=== PATIENT | female | born 1960 | race Caucasian/White ===

== ENCOUNTER 2017-12-02 12:39 | Emergency (ER) | payer OTHER ==
--- NOTE | 2017-12-02 12:51 | PDOC ---
History of Present Illness - General Chief Complaint: Urinary Problem Stated Complaint: 7 days of flu/now uti, cough Time Seen by Provider: 12/02/17 12:50 - History of Present Illness Initial Comments: 12/02/17 13:08 Chief complaint: Dysuria History of present illness: Dysuria, urgency, frequency, for 2 days. Subjective fever. Suprapubic pain Review of systems: Recent flulike symptoms for one week, appear to be resolving. However, has developed an intractable cough, dry, no sputum, no shortness of breath or chest pain. There is mild flank pain bilaterally. Past medical history: Infrequent UTIs in the past. Otherwise negative Social/family history reviewed and noncontributory except for smoking cigarettes. Physical exam: Alert and oriented no acute distress cooperative Afebrile, vital signs normal No pallor or icterus. PERRLA, fundi benign, ENT clear Neck supple without bruit mass or nodes Lungs sounds are distant bilaterally but there are no wheezes rales or rhonchi. Symmetric. CV S1 and S2 distant without murmur rub or gallop no JVD or edema no bruits Abdomen nondistended. Bowel sounds normal. Soft without mass or organomegaly. There is mild tenderness over the bladder, without significant bladder distention to palpation or percussion. There is no guarding or rebound Extremities no CCE Skin clear, no rash, adequate turgor and wet mucous membranes Neurological intact Impression: Recent flulike illness which seems to be improving, however, has developed a cough, is a smoker, rule out occult pneumonia. Despite no shortness of breath and good oxygen saturation. Rule out UTI Plan: Chest x-ray, urinalysis, further medical management depending on results. Past History - Past Medical History Allergies/Adverse Reactions: Allergies Allergy/AdvReac Type Severity Reaction Status Date / Time No Known Allergies Allergy Verified 12/21/15 13:01 Home Medications: Ambulatory Orders Ibuprofen 200 mg PO TID PRN 12/02/17 Sulfamethoxazole/Trimethoprim [Bactrim Ds -] 1 tab PO BID #14 tablet 12/02/17 Anemia: No Asthma: No Cancer: No Cardiac Disorders: No CVA: No COPD: No CHF: No Dementia: No Diabetes: No GI Disorders: No Disorders: No HTN: No Hypercholesterolemia: No Liver Disease: No Seizures: No Thyroid Disease: No - Surgical History Abdominal Surgery: No Appendectomy: No Cardiac Surgery: No Cholecystectomy: Yes Lung Surgery: No Neurologic Surgery: No Orthopedic Surgery: No - Suicide/Smoking/Psychosocial Hx Smoking Status: No Smoking History: Never smoked Have you smoked in the past 12 months: No Number of Cigarettes Smoked Daily: 0 'Breaking Loose' booklet given: 09/24/12 Hx Alcohol Use: No Drug/Substance Use Hx: No Substance Use Type: None Hx Substance Use Treatment: No Medical Decision Making - Medical Decision Making 12/02/17 14:09 Chest x-ray is clear. However evidence of severe chronic COPD is present. This was discussed with the patient and strongly recommended that she stop smoking Urinalysis with nitrites, but only 0-2 white cells. Culture pending. Antibiotic until culture results are forthcoming. *DC/Admit/Observation/Transfer Diagnosis at time of Disposition: Viral upper respiratory tract infection with cough UTI (urinary tract infection) Qualifiers: Urinary tract infection type: acute cystitis Hematuria presence: without hematuria Qualified Code(s): N30.00 - Acute cystitis without hematuria - Discharge Dispostion Disposition: HOME Condition at time of disposition: Stable Admit: No - Prescriptions Prescriptions: Sulfamethoxazole/Trimethoprim [Bactrim Ds -] 1 tab PO BID #14 tablet - Referrals - Patient Instructions Printed Discharge Instructions: DI for Viral Upper Respiratory Infection -- Adult, DI for Urinary Tract Infection in Children - Post Discharge Activity Forms/Work/School Notes: Back to Work
[2017-12-02 12:57] VITALS: BP 136/92; PULSE 95; TEMP 97.7; BMI 23.0
[2017-12-02 13:03] LABS: PH,URINE 5.5 (4.5-8); URINE BILIRUBIN Negative (NEGATIVE); URINE GLUCOSE (UA) Negative (NEGATIVE); URINE KETONE Trace (NEGATIVE); URINE LEUK ESTERASE Negative (NEGATIVE); URINE NITRITE Positive (NEGATIVE); URINE UROBILINOGEN 0.2 (0.2-1.0)
[2017-12-02 13:54] LABS: URINE BLOOD 1+ (NEGATIVE); URINE COLOR YELLOW; URINE PROTEIN 1+ (NEGATIVE)
[2017-12-02 13:55] LABS: URINE APPEARANCE HAZY
[2017-12-02 14:03] LABS: EPI CELLS FEW /HPF; URINE BACTERIA FEW /hpf (NEGATIVE); URINE RBC 0-2 /hpf (0-3); URINE WBC 0-2 (0-5)
== END 2017-12-02 14:20 | disposition home or self-care (01) ==
LOC: FER 12:39
DX: N30.00 Acute cystitis without hematuria (principal); J06.9 Acute upper respiratory infection, unspecified; B97.89 Other viral agents as the cause of diseases classified elsewhere; R05 Cough
CPT/HCPCS: 71046-TC-FY; 81003; 81015; 87086; 99282-25

== ENCOUNTER 2018-01-23 17:17 | Emergency (ER) | payer OTHER ==
[2018-01-23 17:38] VITALS: BP 124/75; PULSE 83; TEMP 98; BMI 23.7
--- NOTE | 2018-01-23 18:50 | PDOC ---
History of Present Illness - General Chief Complaint: Eye Problem Stated Complaint: facial redness Time Seen by Provider: 01/23/18 18:49 History Source: Patient Exam Limitations: No Limitations - History of Present Illness Initial Comments: 01/23/18 18:55 57y F no known pmhx presents with R eye redness. Pt states on it was windy and she felt something may have blown in her eyes. she was feeling fine but her daugther noticed some redness/swelling under her R eye yesterday. pt has been putting a tea bag on it and the redness has been improving but pt also noticed a bump in the lower eye lid of R eye. pt denies any eye itching, eye pain, changes in her vision, fever/chills, congestion, new cough, ear pain. Past History - Past Medical History Allergies/Adverse Reactions: Allergies Allergy/AdvReac Type Severity Reaction Status Date / Time No Known Allergies Allergy Verified 01/23/18 17:40 Anemia: No Asthma: No Cancer: No Cardiac Disorders: No CVA: No COPD: No CHF: No Dementia: No Diabetes: No GI Disorders: No Disorders: No HTN: No Hypercholesterolemia: No Liver Disease: No Seizures: No Thyroid Disease: No - Surgical History Abdominal Surgery: No Appendectomy: No Cardiac Surgery: No Cholecystectomy: Yes Lung Surgery: No Neurologic Surgery: No Orthopedic Surgery: No - Suicide/Smoking/Psychosocial Hx Smoking Status: No Smoking History: Current every day smoker Have you smoked in the past 12 months: No Number of Cigarettes Smoked Daily: 20 Information on smoking cessation initiated: Yes 'Breaking Loose' booklet given: 01/23/18 Hx Alcohol Use: No Drug/Substance Use Hx: No Substance Use Type: None Hx Substance Use Treatment: No Review of Systems - Review of Systems Able to Perform ROS?: Yes Comments:: 01/23/18 18:57 Constitutional - no reported Fever, Chills, HEENT: +eye redness/swelling no reported vision changes, sore throat Respiratory: no reported cough, sob, Cardiac: no reported chest pain, palpitations, light headedness, leg swelling Abd/GI: no reported abd pain, nausea, vomiting Musculskelatal - no reported back pain, joint swelling skin - no reported bruising, erythema, rash neurological: no reported headache, numbness, focal weakness, tingling, ataxia, *Physical Exam - Vital Signs Last Vital Signs Temp Pulse Resp BP Pulse Ox 98.0 F 83 18 124/75 99 01/23/18 17:18 01/23/18 17:18 01/23/18 17:18 01/23/18 17:18 01/23/18 17:18 - Physical Exam Comments: 01/23/18 18:57 GENERAL: The patient is awake, alert, and fully oriented, Nontoxic - in no acute distress. HEAD: Normocephalic, atraumatic. EYES: extraocular movements intact, sclera anicteric, conjunctiva clear. Mild periorbital edema under her right eye with erythema, not warm to the touch not tender, no fluctuance, no proptosis, small palable mass (1x1mm) on the lower lid (not on margin) that is nontender, nonfluctuant Medical Decision Making - Medical Decision Making 01/23/18 18:59 suspect possible ALLERGIC reaction improving with warm compress No signs of periorbital cellulitis or orbital cellulitis I discussed the physical exam findings, ancillary test results and final diagnoses with the patient. I answered all of the patient's questions. The patient was satisfied with the care received and felt comfortable with the discharge plan and treatment plan. The patient will call their primary care physician within 24 hours to arrange follow-up and will return to the Emergency Department with any new, persistent or worsening symptoms. *DC/Admit/Observation/Transfer Diagnosis at time of Disposition: Eye redness - Discharge Dispostion Disposition: HOME Condition at time of disposition: Improved Admit: No - Referrals Referrals: Chintan Pal MD [Staff Physician] - - Patient Instructions Printed Discharge Instructions: DI for Eye Allergic Reaction Additional Instructions: Avoid rubbing your eye. See an ophtalmalogist for evaluation of the bump in your eye lid Print Language: POLISH - Post Discharge Activity
== END 2018-01-23 19:00 | disposition home or self-care (01) ==
LOC: FER 17:17
DX: H57.8 Other specified disorders of eye and adnexa (principal)
CPT/HCPCS: 99282-25

== ENCOUNTER 2018-06-15 08:36 | Emergency (ER) | payer OTHER ==
[2018-06-15 08:44] VITALS: TEMP 98.6; BMI 23.9
[2018-06-15 08:58] LABS: URINE APPEARANCE Clear; URINE BILIRUBIN Negative (NEGATIVE); URINE COLOR Yellow; URINE GLUCOSE (UA) Negative (NEGATIVE); URINE KETONE Negative (NEGATIVE); URINE LEUK ESTERASE 3+ (NEGATIVE); URINE NITRITE Negative (NEGATIVE); URINE PROTEIN Negative (NEGATIVE); URINE UROBILINOGEN 0.2 (0.2-1.0)
[2018-06-15 09:11] LABS: EPI CELLS FEW /HPF; URINE BACTERIA FEW /hpf (NEGATIVE); URINE RBC 20-30 /hpf (0-3); URINE WBC 50-80 (0-5)
[2018-06-15] MEDS ORDERED: KETOROLAC TROMETHAMINE 30 MG/1 ML VIAL IM ONE (09:59)
[2018-06-15] MEDS ORDERED: FLUCONAZOLE 150 MG TABLET PO ONE ×2 (09:59→10:04)
[2018-06-15] MEDS ORDERED: PHENAZOPYRIDINE HCL 100 MG TABLET (FP) PO ONE (09:59)
[2018-06-15] MEDS ORDERED: NITROFURANTOIN MACROCRYSTAL 50 MG CAPSULE (FP) PO SCH (10:00)
[2018-06-15] MEDS ORDERED: NITROFURANTOIN MACROCRYSTAL 50 MG CAPSULE (FP) ONE (10:04)
[2018-06-15] MEDS ORDERED: KETOROLAC TROMETHAMINE 30 MG/1 ML VIAL ONE (10:04)
[2018-06-15] MEDS ORDERED: PHENAZOPYRIDINE HCL 100 MG TABLET (FP) ONE (10:05)
--- NOTE | 2018-06-15 10:09 | PDOC ---
History of Present Illness - General Chief Complaint: Urinary Problem Stated Complaint: BURNING ON URINATION/PELVIC PAIN Time Seen by Provider: 06/15/18 08:45 - History of Present Illness Initial Comments: 06/15/18 10:07 57 years old past medical history significant for high cholesterol and uterine prolapse presents to the emergency department 2 week history of suprapubic discomfort and burning with urination. Patient treated herself with Monistat cream with persistent symptoms No fever no chills no back pain no nausea no vomiting symptoms are persistent constant with no exacerbating or alleviating factors. Past History - Past Medical History Allergies/Adverse Reactions: Allergies Allergy/AdvReac Type Severity Reaction Status Date / Time No Known Allergies Allergy Verified 01/23/18 17:40 Anemia: No Asthma: No Cancer: No Cardiac Disorders: No CVA: No COPD: No CHF: No Dementia: No Diabetes: No GI Disorders: No Disorders: No HTN: No Hypercholesterolemia: Yes Liver Disease: No Seizures: No Thyroid Disease: No - Surgical History Abdominal Surgery: No Appendectomy: No Cardiac Surgery: No Cholecystectomy: Yes Lung Surgery: No Neurologic Surgery: No Orthopedic Surgery: No - Suicide/Smoking/Psychosocial Hx Smoking Status: No Smoking History: Current every day smoker Have you smoked in the past 12 months: No Number of Cigarettes Smoked Daily: 20 Information on smoking cessation initiated: Yes 'Breaking Loose' booklet given: 01/23/18 Hx Alcohol Use: No Drug/Substance Use Hx: No Substance Use Type: None Hx Substance Use Treatment: No Review of Systems - Review of Systems Comments:: 06/15/18 10:08 ROS: A complete review of 10 out of 10 review of systems is taken and is negative apart from what is previously mentioned below and in the HPI. *Physical Exam - Vital Signs Last Vital Signs Temp Pulse Resp BP Pulse Ox 98.6 F 107 H 18 159/109 H 100 06/15/18 08:39 06/15/18 08:39 06/15/18 08:39 06/15/18 08:39 06/15/18 08:39 - Physical Exam Comments: 06/15/18 10:08 Vitals: Triage Vital signs reviewed General Appearance: no acute distress, well nourished well developed, Cardiac: Regular rate and rhythym, no murmurs, no rubs, no gallops, Lungs: Clear to auscultation bilateral, good air movement bilaterally, Abdomen: Soft, non distended, normal bowel sounds, non tender to palpation Genitourinary: Diffuse vaginismus. No adnexal tenderness. Discharge noted thick white consistent with candidiasis Rectal: Exam deferred Extremities: Full range of motion to all extremities, no cyanosis, clubbing, or edema Skin: Warm and dry, no rashes or lesions, no rash, no petechiae Psych: normal mood, normal affect ED Treatment Course - ADDITIONAL ORDERS Additional order review: Laboratory Results 06/15/18 08:55 Urine Color Yellow Urine Appearance Clear Urine pH 6.0 Ur Specific [place] <= 1.005 Urine Protein Negative Urine Glucose (UA) Negative Urine Ketones Negative Urine Blood 3+ H Urine Nitrite Negative Urine Bilirubin Negative Urine Urobilinogen 0.2 Ur Leukocyte Esterase 3+ H Urine RBC 20-30 Urine WBC 50-80 Ur Epithelial Cells Few Urine Bacteria Few Medical Decision Making - Medical Decision Making 06/15/18 10:09 57 years old not sexually active with signs and symptoms of urinary tract infection and concomitant Heese infection No evidence of pyelonephritis at this time We'll treat with 7 course of Macrobid IV Toradol for discomfort fluconazole for his infection Patient advised to follow-up with her [employer] this week if vaginal discomfort symptoms continue and she will return to the emergency department for any severe worsening symptoms. Findings, the need for follow-up and strict return instructions discussed with patient. *DC/Admit/Observation/Transfer Diagnosis at time of Disposition: UTI (urinary tract infection) Qualifiers: Urinary tract infection type: site unspecified Hematuria presence: with hematuria Qualified Code(s): N39.0 - Urinary tract infection, site not specified ; R31.9 - Hematuria, unspecified - Discharge Dispostion Disposition: HOME Condition at time of disposition: Stable Decision to Admit order: No - Referrals Referrals: Chintan Pal MD [Staff Physician] - Nella Oquendo MD [Non Staff, Medical] - - Patient Instructions Printed Discharge Instructions: Urinary Tract Infection Additional Instructions: Follow-up with your [employer] doctor this week. Take Macrobid as prescribed. Purchase [id number] Pyridium or Azo and take as directed for the next 3 days. Alternate Tylenol and Motrin as directed on package as needed for pain. Return to the emergency department for any fever back pain nausea vomiting severe worsening symptoms or for any concerns. - Post Discharge Activity
[2018-06-15 10:25] VITALS: BP 142/96; PULSE 84
== END 2018-06-15 10:46 | disposition home or self-care (01) ==
LOC: FER 08:36
PROC: 3E0233Z Introduction of Anti-inflammatory into Muscle, Percutaneous Approach (ICD-10-PCS; principal; 2018-06-15)
DX: N39.0 Urinary tract infection, site not specified (principal); E78.00 Pure hypercholesterolemia, unspecified; F17.210 Nicotine dependence, cigarettes, uncomplicated
CPT/HCPCS: 36415; 81003; 81015; 87086; 87186; 87491; 87591; 99282-25

== ENCOUNTER 2018-06-17 17:13 | Inpatient (IN) | payer OTHER ==
[2018-06-17 17:19] VITALS: BMI 23.9
--- NOTE | 2018-06-17 17:19 | PDOC ---
Rapid Medical Evaluation Time Seen by Provider: 06/17/18 17:14 Medical Evaluation: Allergies Allergy/AdvReac Type Severity Reaction Status Date / Time No Known Allergies Allergy Verified 06/15/18 10:17 I have performed a brief in-person evaluation of this patient. The patient presents with a chief complaint of: patient diagnosed with cystitis and UTI 2 days ago. She tried to have a BM yesterday and felt something strain and now has "internal" pain in her vagina. She was also diagnosed with a yeast infection 2 days ago but wasn't treated. she had an ultrasound today that showed a uterine fibroid Pertinent physical exam findings: walking as if in pain I have ordered the following: labs The patient will proceed to the ED for further evaluation. Discharge Disposition - Diagnosis Vaginal pain - Referrals - Patient Instructions - Post Discharge Activity
[2018-06-17 17:57] LABS: EOS % 5.1 % (0-4.5); HEMATOCRIT 44.1 % (32.4-45.2); HEMOGLOBIN 14.7 GM/dL (10.7-15.3); LYMPH % 26.8 % (8-40); MCHC 33.4 g/dl (32.0-36.0); MEAN CELL VOLUME 89.8 fl (80-96); MEAN PLT VOLUME 8.9 fl (7.5-11.1); MONO % 8.1 % (3.8-10.2); PLATELET COUNT 260 K/MM3 (134-434)
--- NOTE | 2018-06-17 18:34 | PDOC ---
History of Present Illness - General History Source: Patient Exam Limitations: No Limitations - History of Present Illness Initial Comments: 06/17/18 19:15 The patient is a 57 year old female with a significant past medical history of HLD and uterine prolapse who presents to the ED with complaints of superpubic pain for several days. The patient states she had a yeast infection one week ago and treated it at home with Monistat. She notes her pain worsened on Thursday (06/14/18) and she went to [facility] ED on Thursday. Patient was diagnosed with cystitis, UTI, and yeast infection and was discharged home with Macrobid and AZO. Today the patient states she developed a burning sharp pain in her pubic region secondary to having an episode where she passed air while urinating. Patient states her pubic pain is worsened with movement and lying down and alleviated when sitting up. Patient had an US done today at work that showed a fibroid. Patient also saw her GI today and was told to come into the ED requesting a CT. Denies fever or chills. Denies back pain. Denies hematuria. Denies vaginal discharge. Denies any other symptoms. GI: Dr. Alba Surgical hx: Gallbladder removal Social hx: The patient works at [employer] <Millie Salvador - Last Filed: 06/17/18 19:15> <Kristen Church - Last Filed: 06/17/18 23:02> - General Chief Complaint: Pain Stated Complaint: PCP SENT/PELVIC PAIN Time Seen by Provider: 06/17/18 17:14 Past History <Millie Salvador - Last Filed: 06/17/18 19:15> - Past Medical History Anemia: No Asthma: No Cancer: No Cardiac Disorders: No CVA: No COPD: No CHF: No DVT: No Dementia: No Diabetes: No GI Disorders: No Disorders: No HTN: No Hypercholesterolemia: Yes Liver Disease: No Seizures: No Thyroid Disease: No - Surgical History Abdominal Surgery: No Appendectomy: No Cardiac Surgery: No Cholecystectomy: Yes Lung Surgery: No Neurologic Surgery: No Orthopedic Surgery: No - Suicide/Smoking/Psychosocial Hx Smoking Status: No Smoking History: Current every day smoker Have you smoked in the past 12 months: No Number of Cigarettes Smoked Daily: 20 Information on smoking cessation initiated: Yes 'Breaking Loose' booklet given: 06/17/18 Hx Alcohol Use: No Drug/Substance Use Hx: No Substance Use Type: None Hx Substance Use Treatment: No <Kristen Church - Last Filed: 06/17/18 23:02> - Past Medical History Allergies/Adverse Reactions: Allergies Allergy/AdvReac Type Severity Reaction Status Date / Time No Known Allergies Allergy Verified 06/17/18 17:15 Home Medications: Ambulatory Orders Nitrofurantoin Monohyd/M-Cryst [Macrobid -] 100 mg PO BID #14 capsule 06/15/18 Review of Systems - Review of Systems Able to Perform ROS?: Yes Comments:: 06/17/18 19:15 GENERAL/CONSTITUTIONAL: No fever or chills. No weakness. HEAD, EYES, EARS, NOSE AND THROAT: No change in vision. No ear pain or discharge. No sore throat. GASTROINTESTINAL: No nausea, vomiting, diarrhea or constipation. GENITOURINARY: + pelvic pain. No dysuria, frequency, or change in urination. CARDIOVASCULAR: No chest pain or shortness of breath. RESPIRATORY: No cough, wheezing, or hemoptysis. MUSCULOSKELETAL: No joint or muscle swelling or pain. No neck or back pain. SKIN: No rash NEUROLOGIC: No headache, vertigo, loss of consciousness, or change in strength/ sensation. ENDOCRINE: No increased thirst. No abnormal weight change. HEMATOLOGIC/LYMPHATIC: No anemia, easy bleeding, or history of blood clots. ALLERGIC/IMMUNOLOGIC: No hives or skin allergy. All Other Systems: Reviewed and Negative <Millie Salvador - Last Filed: 06/17/18 19:15> *Physical Exam - Vital Signs Last Vital Signs Temp Pulse Resp BP Pulse Ox 98.3 F 118 H 18 209/92 H 100 06/17/18 17:15 06/17/18 17:15 06/17/18 17:15 06/17/18 17:15 06/17/18 17:15 - Physical Exam Comments: 06/17/18 19:15 Constitutional: + Uncomfortable appearing. Awake, alert, oriented. No acute distress. Head: Normocephalic. Atraumatic Eyes: PERRL. EOMI. Conjunctivae are not pale. ENT: Mucous membranes are moist and intact. Posterior pharynx without exudates or erythema. Uvula midline. Neck: Supple. Full ROM. No lymphadenopathy. Cardiovascular: +Tachycardic. Regular rhythm. S1, S2 regular. Distal pulses are 2+ and symmetric. Pulmonary/Chest: No evidence of respiratory distress. Clear to auscultation bilaterally No wheezing, rales or rhonchi. Abdominal: Soft and non-distended. There is no tenderness. No rebound, guarding or rigidity. No organomegaly. No palpable masses. Good bowel sounds. Back: No CVA tenderness. Musculoskeletal: No edema. No cyanosis. No clubbing. Full range of motion in all extremities. Nocalf tenderness. Radial/pedal pulses are intact and 2+ bilaterally Skin: Skin is warm and dry. No petechiae. No purpura. Neurological: Alert and oriented to person, place, and time. Cranial nerves II -XII are grossly intact. Normal speech. Strength is grossly symmetric. No sensory deficits. Psychiatric: Good eye contact. Normal interaction, affect and behavior. <Millie Salvador - Last Filed: 06/17/18 19:15> - Vital Signs Last Vital Signs Temp Pulse Resp BP Pulse Ox 98.3 F 118 H 18 209/92 H 100 06/17/18 17:15 06/17/18 17:15 06/17/18 17:15 06/17/18 17:15 06/17/18 17:15 <Kristen Church - Last Filed: 06/17/18 23:02> Heart Score/ECG Review - ECG Intrepretation Comment:: 06/17/18 21:49 sinus at 72, nl axis, nl interval, no acute st/t wave findings <Kristen Church - Last Filed: 06/17/18 23:02> ED Treatment Course - LABORATORY CBC & Chemistry Diagram: 06/17/18 17:30 06/17/18 17:30 - ADDITIONAL ORDERS Additional order review: Laboratory Results 06/17/18 06/17/18 17:38 17:30 Sodium 141 Potassium 4.0 Chloride 103 Carbon Dioxide 26 Anion Gap 11 BUN 11 Creatinine 0.7 Creat Clearance w eGFR > 60 Random Glucose 101 Calcium 11.1 H Total Bilirubin 0.6 AST 21 ALT 26 Alkaline Phosphatase 112 Total Protein 7.6 Albumin 4.5 Urine Color [place] Urine Appearance Clear Urine pH 6.0 Ur Specific [place] 1.004 Urine Protein Negative Urine Glucose (UA) Negative Urine Ketones Negative Urine Blood 3+ H Urine Nitrite Positive Urine Bilirubin Negative Urine Urobilinogen 4.0 e.u/dl H Ur Leukocyte Esterase 2+ H Urine WBC (Auto) 33 Urine RBC (Auto) 1 Ur Epithelial Cells Rare 06/17/18 17:30 RBC 4.90 MCV 89.8 MCHC 33.4 RDW 14.0 MPV 8.9 Neutrophils % 59.0 Lymphocytes % 26.8 Monocytes % 8.1 Eosinophils % 5.1 H Basophils % 1.0 <Millie Salvador - Last Filed: 06/17/18 19:15> - LABORATORY CBC & Chemistry Diagram: 06/17/18 17:30 06/17/18 17:30 - ADDITIONAL ORDERS Additional order review: 06/17/18 17:30 RBC 4.90 MCV 89.8 MCHC 33.4 RDW 14.0 MPV 8.9 Neutrophils % 59.0 Lymphocytes % 26.8 Monocytes % 8.1 Eosinophils % 5.1 H Basophils % 1.0 <Kristen Church - Last Filed: 06/17/18 23:02> Medical Decision Making - Medical Decision Making 06/17/18 18:58 a/p: 57yo female with pelvic pain that has been worsening -started after having a bm on thursday when she felt something pop and felt air from her vagina -went to the ED and dx with cystitis on Thursday and started on Macrobid -pt with worsening burning in vaginal area and lower abd pain with movement -went to dr. alba who performed rectal exam and then sent her to the ED -pt in obvious pain -pt works at [employer] -will send labs, ua, ucx, will obtain ct abd/pelvis - Dr. Biggs -GI Dr. Alba -hx of bladder mesh that has had complications in the past -will medicate for pain -will monitor and reassess 06/17/18 21:45 Dr. Alba at the bedside pt finished po contrast 06/17/18 23:01 pt without acute findings on ct, however contrast did not make it to lower colon pt also with uti that failed outpt abx case discussed with Rocio from [facility] who accepts pt to service - covering Dr. Pal <Kristen Church - Last Filed: 06/17/18 23:02> *DC/Admit/Observation/Transfer - Attestations Scribe Attestion: 06/17/18 19:15 Documentation prepared by Millie Salvador, acting as medical service technician for Kristen Church DO <Millie Salvador - Last Filed: 06/17/18 19:15> - Discharge Dispostion Decision to Admit order: Yes - Attestations Physician Attestion: 06/17/18 23:02 I, Dr. Kristen Church, DO, attest that this document has been prepared under my direction and personally reviewed by me in its entirety. I further attest, that it accurately reflects all work, treatment, procedures and medical decision -making performed by me. <Kristen Church - Last Filed: 06/17/18 23:02> Diagnosis at time of Disposition: Vaginal pain, Pelvic pain UTI (urinary tract infection) Qualifiers: Urinary tract infection type: site unspecified Hematuria presence: with hematuria Qualified Code(s): N39.0 - Urinary tract infection, site not specified - Discharge Dispostion Condition at time of disposition: Fair
[2018-06-17 18:43] LABS: ALBUMIN 4.5 g/dl (3.4-5.0); ALK PHOS 112 U/L (45-117); ANION GAP 11 MMOL/L (8-16); BILIRUBIN,TOTAL 0.6 mg/dL (0.2-1); BLOOD UREA NITROGEN 11 mg/dL (7-18); CALCIUM 11.1 mg/dL (8.5-10.1); CHLORIDE 103 mmol/L (98-107); CO2 26 mmol/L (21-32); CREATININE 0.7 mg/dL (0.55-1.3); GLUCOSE,RANDOM 101 mg/dL (74-106); SGOT/AST 21 U/L (15-37); SGPT/ALT 26 U/L (13-61); SODIUM 141 mmol/L (136-145); TOT PROT 7.6 g/dl (6.4-8.2)
[2018-06-17 18:54] LABS: URINE APPEARANCE CLEAR; URINE BILIRUBIN NEGATIVE (<2.0 mg/dL); URINE COLOR AMBER; URINE GLUCOSE (UA) NEGATIVE (NEGATIVE); URINE KETONE NEGATIVE (NEGATIVE); URINE NITRITE POSITIVE (NEGATIVE); URINE PROTEIN NEGATIVE (NEGATIVE); URINE UROBILINOGEN 4.0 E.U/dl mg/dL (0.2-1.0)
[2018-06-17] MEDS ORDERED: SODIUM CHLORIDE 0.9% 1000 ML INFUS.BAG IV ONE (18:57)
[2018-06-17] MEDS ORDERED: morphine CARPU-JECT 4 MG/1 ML DISP.SYRIN IVPUSH ONE (18:57)
[2018-06-17 18:58] LABS: URINE LEUK ESTERASE 2+ (NEGATIVE)
[2018-06-17 19:05] LABS: EPI CELLS RARE /HPF (FEW)
[2018-06-17] MEDS ORDERED: CEFTRIAXONE 1 GM in DEXTROSE 5%-WATER - 100 ML IVPB ONE (19:57)
[2018-06-17] MEDS ORDERED: PHENAZOPYRIDINE HCL 100 MG TABLET (FP) PO ONE (19:58)
[2018-06-17] MEDS ORDERED: morphine SULFATE 4 MG/ML VIAL ONE (20:06)
[2018-06-17] MEDS ORDERED: PHENAZOPYRIDINE HCL 100 MG TABLET (FP) ONE (20:06)
[2018-06-17] MEDS ORDERED: CEFTRIAXONE 1 GM/50 ML BAG ONE (20:07)
--- NOTE | 2018-06-17 22:08 | CON.GI ---
Consult Consult Specialty:: Gastroenterology Referred by:: Dr Pal Reason for Consultation:: Pelvic pain - History of Present Illness Chief Complaint: Pelvic pain History of Present Illness: 57F presented to my office with severe pelvic/perineal pain that she developed while straining to defecate on 06/14. She felt something pop and heard a strange hissing noise. She was already being treated for a UTI and vaginal fungal infections and had dysuria and frequency but no pain. Today when I saw her in the office she could barely get out of a chair and walked hunched over due to the severity of the pain. She had been seen in the ER twice this week and had an unremarkable transvaginal ultrasound. I could not identify a recticele or prolapse but suspect that she herniated a viscus or bowel during the defecation. She has complex history of a bladder prolapse repair apparently with a sling which had to be removed when complications developed. 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 She recall that mesh had migrated and had to be removed. Her surgeries were performed by Dr. Biggs. Since then she chronically has fecal incontinence and constipation. s There is no data on [facility]. She last had a colonoscopy with me in 07/03 at which time I removed 6 hyperplastic polyps from the distal half of her colon. Mild left colon diverticulosis was found. - History Source History Provided By: Patient Limitations to Obtaining History: No Limitations - Past Medical History Pulmonary: Yes: COPD Gastrointestinal: Yes: Diverticulosis, Other (colon polyps) Hepatobiliary: Yes: Cholelithiasis (s/p lap choly) Renal/: Yes: Renal Calculi (bladder polyp removed 2010), UTI (recurremt) Reproductive: Yes: Fibroids (D&C 2012) Psych: Yes: Anxiety - Past Surgical History Past Surgical History: Yes: Cholecystectomy (lap choly ) Additional Surgical History: bladder prolpase repair x 2 with removal of sling and mesh. 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 Place of : [facility] History of Recent Travel: No Home Medications - Allergies Allergies/Adverse Reactions: Allergies Allergy/AdvReac Type Severity Reaction Status Date / Time No Known Allergies Allergy Verified 06/17/18 17:15 - Home Medications Home Medications: Ambulatory Orders Nitrofurantoin Monohyd/M-Cryst [Macrobid -] 100 mg PO BID #14 capsule 06/15/18 Family Disease History - Family Disease History Family Disease History: Diabetes: Brother, Heart Disease: Father ( of [place]), CA: Mother (colon cancer), Other: Sister (thyroid disease) Review of Systems - Review of Systems Constitutional: reports: No Symptoms Eyes: reports: No Symptoms HENT: reports: No Symptoms Neck: reports: No Symptoms Cardiovascular: reports: No Symptoms Respiratory: reports: No Symptoms Gastrointestinal: reports: Constipation Genitourinary: reports: Burning, Dysuria, Other (severe perineal/[pelvic pain) Physical Exam-GI Vital Signs: Vital Signs Temperature 98.3 F 06/17/18 17:15 Pulse Rate 118 H 06/17/18 17:15 Respiratory Rate 18 06/17/18 17:15 Blood Pressure 209/92 H 06/17/18 17:15 O2 Sat by Pulse Oximetry (%) 100 06/17/18 17:15 CBC,CMP WBC 8.0 K/mm3 (4.0-10.0) 06/17/18 17:30 RBC 4.90 M/mm3 (3.60-5.2) 06/17/18 17:30 Hgb 14.7 GM/dL (10.7-15.3) 06/17/18 17:30 Hct 44.1 % (32.4-45.2) 06/17/18 17:30 MCV 89.8 fl (80-96) 06/17/18 17:30 MCH 30.0 pg (25.7-33.7) 06/17/18 17:30 MCHC 33.4 g/dl (32.0-36.0) 06/17/18 17:30 RDW 14.0 % (11.6-15.6) 06/17/18 17:30 Plt Count 260 K/MM3 (134-434) 06/17/18 17:30 MPV 8.9 fl (7.5-11.1) 06/17/18 17:30 Absolute Neuts (auto) 4.7 K/mm3 (1.5-8.0) 06/17/18 17:30 Neutrophils % 59.0 % (42.8-82.8) 06/17/18 17:30 Lymphocytes % 26.8 % (8-40) 06/17/18 17:30 Monocytes % 8.1 % (3.8-10.2) 06/17/18 17:30 Eosinophils % 5.1 % (0-4.5) H 06/17/18 17:30 Basophils % 1.0 % (0-2.0) 06/17/18 17:30 Nucleated RBC % 0 % (0-0) 06/17/18 17:30 Sodium 141 mmol/L (136-145) 06/17/18 17:30 Potassium 4.0 mmol/L (3.5-5.1) 06/17/18 17:30 Chloride 103 mmol/L (98-107) 06/17/18 17:30 Carbon Dioxide 26 mmol/L (21-32) 06/17/18 17:30 Anion Gap 11 MMOL/L (8-16) 06/17/18 17:30 BUN 11 mg/dL (7-18) 06/17/18 17:30 Creatinine 0.7 mg/dL (0.55-1.3) 06/17/18 17:30 Creat Clearance w eGFR > 60 (>60) 06/17/18 17:30 Random Glucose 101 mg/dL (74-106) 06/17/18 17:30 Calcium 11.1 mg/dL (8.5-10.1) H 06/17/18 17:30 Total Bilirubin 0.6 mg/dL (0.2-1) 06/17/18 17:30 AST 21 U/L (15-37) 06/17/18 17:30 ALT 26 U/L (13-61) 06/17/18 17:30 Alkaline Phosphatase 112 U/L (45-117) 06/17/18 17:30 Total Protein 7.6 g/dl (6.4-8.2) 06/17/18 17:30 Albumin 4.5 g/dl (3.4-5.0) 06/17/18 17:30 Constitutional: Yes: Anxious, Moderate Distress Eyes: Yes: Conjunctiva Clear HENT: Yes: Normocephalic Neck: Yes: Supple Cardiovascular: Yes: Regular Rate and Rhythm, Tachycardia Respiratory: Yes: CTA Bilaterally Gastrointestinal Inspection: Yes: Scars (healed laparoscopic incisions) ...Auscultate: Yes: Normoactive Bowel Sounds ...Palpate: Yes: Soft, Other (nontender) ...Rectal Exam: Yes: Guaiac Negative, Other (no obvious prolapse appreciated) Edema: No Peripheral Pulses WNL: Yes Neurological: Yes: Alert, Oriented Labs: CBC, BMP 06/17/18 17:30 06/17/18 17:30 Imaging - Results Cat Scan: Other (pending) Problem List - Problems (1) Pelvic pain in female Assessment/Plan: I suspect that Giovana herniated bowel or mesentery while straining to defecate and that this tissue may be compromised enough to be causing her severe pain. She therefore needs to be observed and pain managed until a diagnosis is established. I have discussed her case with Dr Church who will consult Dr Biggs who is more familiar with her previous complications and status and Dr. Braxton as well. Await CT results. Code(s): R10.2 - PELVIC AND PERINEAL PAIN (2) Perineal pain in female Code(s): N94.9 - UNSP COND ASSOC W FEMALE GENITAL ORGANS AND MENSTRUAL CYCLE (3) Constipation Code(s): K59.00 - CONSTIPATION, UNSPECIFIED (4) History of prolapse of bladder Code(s): Z87.448 - PERSONAL HISTORY OF OTHER DISEASES OF URINARY SYSTEM (5) COPD (chronic obstructive pulmonary disease) Code(s): J44.9 - CHRONIC OBSTRUCTIVE PULMONARY DISEASE, UNSPECIFIED (6) Colon polyp, hyperplastic Assessment/Plan: will set up surveillance colonoscopy after discharge Code(s): K63.5 - POLYP OF COLON (7) Diverticula of colon Code(s): K57.30 - DVRTCLOS OF LG INT W/O PERFORATION OR ABSCESS W/O BLEEDING (8) Nephrolithiasis Code(s): N20.0 - CALCULUS OF KIDNEY (9) Family history of colon cancer in mother Code(s): Z80.0 - FAMILY HISTORY OF MALIGNANT NEOPLASM OF DIGESTIVE ORGANS Assessment/Plan Await CT
[2018-06-17] MEDS ORDERED: morphine SULFATE 4 MG/ML VIAL IVPUSH PRN (23:05)
[2018-06-18] MEDS: DEXTROSE 5%-0.45% SALINE 1,000 ML IV SCH ×2 (00:30→09:27)
--- NOTE | 2018-06-18 02:03 | HP ---
CHIEF COMPLAINT: pelvic pain PCP: Demarco, Urology: Kalyan GI: Anjali HISTORY OF PRESENT ILLNESS: This is a 57 year old female with a past medical history of HLD and prolapsed bladder who presented to the ED with severe pelvic/perineal pain that developed while straining to defecate on 06/14. She felt something pop and heard a strange hissing noise. She also reports dysuria x 1 week. She was evaluated at [place] [facility] on 06/15 and diagnosed with a UTI. She was started on macrobid but the pain is no better and is having difficulty walking due to the pain. She also had an outpatient transvaginal ultrasound today which was normal except for a small uterine fibroid. She went to see her GI today who sent her in for CT scan. Upon exam she reports pain with movement and ambulation but feels ok lying still. ER course was notable for: (1) CT abd/pel without definitive acute findings, but cannot r/o SBO (2) started on ceftriaxone for UTI Recent Travel: pt denies PAST MEDICAL HISTORY: hyperlipidemia, bladder prolapse, bladder stones, diverticulosis, colon polyps, uterine fibroids, anxiety PAST SURGICAL HISTORY: prolapsed bladder repair x 2 (sling and subsequent removal due to complications) cholecystectomy D&C 2012 Social History: SmokinPPD X 43Y Alcohol: pt denies Drugs: pt denies Family History: father age 54, MD mother age 90, dementia, had colon CA brother with DM sister with thyroid disease 2 children alive and well Allergies No Known Allergies Allergy (Verified 06/17/18 17:15) HOME MEDICATIONS: 3 Medication Instructions Recorded Nitrofurantoin Monohyd/M-Cryst 100 mg PO BID #14 capsule 06/15/18 [Macrobid -] REVIEW OF SYSTEMS CONSTITUTIONAL: Absent: fever, chills, diaphoresis, generalized weakness, malaise, loss of appetite, weight change HEENT: Absent: rhinorrhea, nasal congestion, throat pain, throat swelling, difficulty swallowing, mouth swelling, ear pain, eye pain, visual changes CARDIOVASCULAR: Absent: chest pain, syncope, palpitations, irregular heart rate, lightheadedness , peripheral edema RESPIRATORY: Absent: cough, shortness of breath, dyspnea with exertion, orthopnea, wheezing, stridor, hemoptysis GASTROINTESTINAL: Absent: abdominal distension, nausea, vomiting, diarrhea, constipation, melena, hematochezia GENITOURINARY: Present: dysuria, pelvic pain Absent: frequency, urgency, hesitancy, hematuria, flank pain, genital pain MUSCULOSKELETAL: Absent: myalgia, arthralgia, joint swelling, back pain, neck pain SKIN: Absent: rash, itching, pallor HEMATOLOGIC/IMMUNOLOGIC: Absent: easy bleeding, easy bruising, lymphadenopathy, frequent infections ENDOCRINE: Absent: unexplained weight gain, unexplained weight loss, heat intolerance, cold intolerance NEUROLOGIC: Absent: headache, focal weakness or paresthesias, dizziness, unsteady gait, seizure, mental status changes, bladder or bowel incontinence PSYCHIATRIC: Absent: anxiety, depression, suicidal or homicidal ideation, hallucinations. PHYSICAL EXAMINATION Vital Signs - 24 hr 3 06/17/18 06/17/18 06/17/18 17:15 23:02 23:09 Temperature 98.3 F 98 F 97.9 F Pulse Rate 118 H 79 Pulse Rate [ 75 Apical] Respiratory 18 18 18 Rate Blood Pressure 209/92 H 134/71 Blood Pressure 124/67 [Right Arm] O2 Sat by Pulse 100 100 100 Oximetry (%) GENERAL: Awake, alert, and fully oriented, in no acute distress. HEAD: Normal with no signs of trauma. EYES: Pupils equal, round and reactive to light, extraocular movements intact, sclera anicteric, conjunctiva clear. No lid lag. EARS, NOSE, THROAT: Ears normal, nares patent, oropharynx clear without exudates. Moist mucous membranes. NECK: Normal range of motion, supple without lymphadenopathy, JVD, or masses. LUNGS: Breath sounds equal, clear to auscultation bilaterally. No wheezes, and no crackles. No accessory muscle use. HEART: Regular rate and rhythm, normal S1 and S2 without murmur, rub or gallop. ABDOMEN: Soft, nontender, not distended, normoactive bowel sounds, no guarding, no rebound, no masses. No hepatomegaly or splenomegaly. MUSCULOSKELETAL: Normal range of motion at all joints. No bony deformities or tenderness. No CVA tenderness. UPPER EXTREMITIES: 2+ pulses, warm, well-perfused. No cyanosis. No clubbing. No peripheral edema. LOWER EXTREMITIES: 2+ pulses, warm, well-perfused. No calf tenderness. No peripheral edema. NEUROLOGICAL: Cranial nerves II-XII intact. Normal speech. Normal gait. PSYCHIATRIC: Cooperative. Good eye contact. Appropriate mood and affect. SKIN: Warm, dry, normal turgor, no rashes or lesions noted, normal capillary refill. Laboratory Results - last 24 hr 3 06/17/18 06/17/18 06/17/18 17:30 17:30 17:38 WBC 8.0 RBC 4.90 Hgb 14.7 Hct 44.1 MCV 89.8 MCH 30.0 MCHC 33.4 RDW 14.0 Plt Count 260 MPV 8.9 Absolute Neuts (auto) 4.7 Neutrophils % 59.0 Lymphocytes % 26.8 Monocytes % 8.1 Eosinophils % 5.1 H Basophils % 1.0 Nucleated RBC % 0 Sodium 141 Potassium 4.0 Chloride 103 Carbon Dioxide 26 Anion Gap 11 BUN 11 Creatinine 0.7 Creat Clearance w eGFR > 60 Random Glucose 101 Calcium 11.1 H Total Bilirubin 0.6 AST 21 ALT 26 Alkaline Phosphatase 112 Total Protein 7.6 Albumin 4.5 Urine Color Aoksua Urine Appearance Clear Urine pH 6.0 Ur Specific Browder 1.004 Urine Protein Negative Urine Glucose (UA) Negative Urine Ketones Negative Urine Blood 3+ H Urine Nitrite Positive Urine Bilirubin Negative Urine Urobilinogen 4.0 e.u/dl H Ur Leukocyte Esterase 2+ H Urine WBC (Auto) 33 Urine RBC (Auto) 1 Ur Epithelial Cells Rare ECG normal sinus rhythm vent rate 72, QTC [address]/T changes Radiology Reports Transvaginal ultrasound IMPRESSION: Small uterine fibroid, otherwise normal pelvic sonogram. Reported By : Junior Beltran MD 06/17/[address] abd/pelvis Impression: Partially included 5 mm pulmonary nodule in the left lower lobe for which correlation with CT scan of the chest is indicated. Status post cholecystectomy with mild dilatation of the central intrahepatic bile ducts and without gross dilatation of the common bile duct. Dilated mid and distal small bowel loops that may be on the basis of ileus. The possibility of early distal small bowel obstruction is unlikely however it could not be excluded. Normal-appearing terminal ileum. Air distended rectum and rectosigmoid junction without wall thickening. There is a trace of free fluid in the right hemipelvis which is nonspecific. 1.9 x 1.1 cm bladder stone layering on the left side it has increased in size since the prior exam. Case discussed with Dr. Campos, caring attending physician. Reported By: Carole Jenkins MD 06/17/18 2300 ASSESSMENT/PLAN: 57yF with PMH HLD, bladder prolapse s/p surgical repair x 2, bladder stones, diverticulosis, colon polyps, uterine fibroids, anxiety presented to the ED with pelvic pain x 4 days, dysuria x 1 week. UTI with pelvic pain - failed outpt therapy - c/s from 06/15 sensitive to cephalosporins. Cont ceftriaxone daily - urology consult - pain out of proportion to expected UTI pain - Contrast did not travel throughout entire colon, will repeat CT scan in am - SPOT WELDER and urology consults - GI consult appreciated - morphine for pain - NPO, D51/2 NS pulmonary nodule - seen on CT - recommend outpatient workup, PCP to follow DVT PPX - heparin SC FEN - D51/2NS @ 125cc/hr - BMP in AM - NPO for now Dispo: Pt currently requires further inpatient management of her emergent condition. Visit type - Emergency Visit Emergency Visit: Yes ED Registration Date: 06/17/18 Care time: The patient presented to the Emergency Department on the above date and was hospitalized for further evaluation of their emergent condition. - New Patient This patient is new to me today: Yes Date on this admission: 06/18/18 - Critical Care Critical Care patient: No Hospitalist Screening - Colonoscopy Questionnaire Colonoscopy Questionnaire: Colonoscopy Questionnaire - Patient: 50 - 75 years old and never had a screening colonoscopy: No (last colonoscopy ) History of colon or rectal polyps, or CA: No History of IBD, Crohn's disease or UC: No History of abdominal radiation therapy as a child: No - Relative: 1 with colon or rectal CA, or polyps at age 60 or younger: No Colon or rectal CA diagnosed at age 45 or younger: No Multiple relatives with colon or rectal CA: No - Outcome: Screening Result: Negative Screen
[2018-06-18] MEDS: HEPARIN NA (PORCINE) 5,000 UNITS/ML 1ML VIAL SQ SCH ×2 (06:00→15:09)
[2018-06-18 07:57] LABS: BASO % 0.8 % (0-2.0); EOS % 4.1 % (0-4.5); HEMATOCRIT 44.9 % (32.4-45.2); HEMOGLOBIN 14.8 GM/dL (10.7-15.3); LYMPH % 16.9 % (8-40); MCH 29.7 pg (25.7-33.7); MCHC 32.9 g/dl (32.0-36.0); MEAN CELL VOLUME 90.2 fl (80-96); MEAN PLT VOLUME 8.4 fl (7.5-11.1); MONO % 6.3 % (3.8-10.2); NEUT % 71.9 % (42.8-82.8); PLATELET COUNT 236 K/MM3 (134-434); RBC 4.98 M/mm3 (3.60-5.2); RDW 14.3 % (11.6-15.6); WHITE BLOOD COUNT 9.2 K/mm3 (4.0-10.0)
[2018-06-18 09:09] LABS: ALBUMIN 3.9 g/dl (3.4-5.0); ALK PHOS 111 U/L (45-117); ANION GAP 8 MMOL/L (8-16); BILIRUBIN,TOTAL 0.6 mg/dL (0.2-1); BLOOD UREA NITROGEN 8 mg/dL (7-18); CALCIUM 9.8 mg/dL (8.5-10.1); CHLORIDE 106 mmol/L (98-107); CO2 28 mmol/L (21-32); CREATININE 0.7 mg/dL (0.55-1.3); GLUCOSE,RANDOM 86 mg/dL (74-106); MAGNESIUM 2.4 mg/dL (1.8-2.4); PHOSPHOROUS 3.6 mg/dL (2.5-4.9); POTASSIUM 4.4 mmol/L (3.5-5.1); SGOT/AST 25 U/L (15-37); SGPT/ALT 31 U/L (13-61); SODIUM 141 mmol/L (136-145); TOT PROT 7.1 g/dl (6.4-8.2)
[2018-06-18 09:15] LABS: AMYLASE 36 U/L (25-115); LDH 172 U/L (84-246)
--- NOTE | 2018-06-18 11:18 | EKG ---
Test Reason : Blood Pressure : / mmHG Vent. Rate : 072 BPM Atrial Rate : 072 BPM P-R Int : 152 ms QRS Dur : 076 ms QT Int : 378 ms P-R-T Axes : 069 081 060 degrees QTc Int : 413 ms NORMAL SINUS RHYTHM NORMAL ECG NO PREVIOUS ECGS AVAILABLE Confirmed by SARAH REGAN, CRISTA ([id number]) on 06/18/2018 11:18:32 AM Referred By: Confirmed By:CRISTA SMITH MD
--- NOTE | 2018-06-18 14:36 | PN ---
Progress Note, Physician Chief Complaint: Ms Garcia is complaining of suprapubic pain with urination and bowel movements. No cp, sob, n/v. - Current Medication List Current Medications: Active Medications Heparin Sodium (Porcine) (Heparin -) 5,000 unit SQ TID [facility] Last Admin: 06/18/18 06:00 Dose: 5,000 unit Dextrose/Sodium Chloride (D5-1/2ns -) 1,000 mls @ 125 mls/hr IV ASDIR BEVERLY Last Admin: 06/18/18 09:27 Dose: 125 mls/hr Ceftriaxone Sodium 1 gm/ (Dextrose) 50 mls @ 100 mls/hr IVPB HS BEVERLY; Protocol Morphine Sulfate (Morphine Sulfate) 4 mg IVPUSH Q4H PRN PRN Reason: PAIN LEVEL 6-10 Last Admin: 06/18/18 03:58 Dose: 4 mg - Objective Vital Signs: Vital Signs Temperature 36.4 C 06/18/18 09:30 Pulse Rate 75 06/18/18 09:30 Respiratory Rate 20 06/18/18 09:30 Blood Pressure 126/73 06/18/18 09:30 O2 Sat by Pulse Oximetry (%) 100 06/17/18 23:09 Constitutional: Yes: Well Nourished, No Distress, Calm Cardiovascular: Yes: Regular Rate and Rhythm. No: Gallop, Murmur, Rub Respiratory: Yes: Regular, CTA Bilaterally. No: Rales, Rhonchi, Wheezes Gastrointestinal: Yes: Normal Bowel Sounds, Soft. No: Distention, Tenderness Extremities: Yes: WNL Edema: No Labs: CBC, BMP 06/18/18 06:20 06/18/18 06:20 Problem List - Problems (1) Pelvic pain in female Assessment/Plan: -possibly secondary to UTI -also with bladder calculus, ? if it is contributing -considering CT scan do not suspect GI in nature -urology and gynecology consulted and awaiting recommendations Code(s): R10.2 - PELVIC AND PERINEAL PAIN (2) UTI (urinary tract infection) Assessment/Plan: -recent urine cultures growing e coli -failed macrobid -currently on rocephin, continue -plan to discharge on oral cephalosporin when ready for discharge Code(s): N39.0 - URINARY TRACT INFECTION, SITE NOT SPECIFIED Qualifiers: Urinary tract infection type: site unspecified Hematuria presence: without hematuria Qualified Code(s): N39.0 - Urinary tract infection, site not specified (3) Bladder calculus Assessment/Plan: -urology consult Code(s): N21.0 - CALCULUS IN BLADDER (4) Hyperlipidemia Assessment/Plan: -can restart statin on discharge Code(s): E78.5 - HYPERLIPIDEMIA, UNSPECIFIED
--- NOTE | 2018-06-18 15:18 | PN ---
GI Progress Note Subjective: GI NOte: Followup CT revealed no compromised or perforated bowel. Her pain is much improved and Jake tolerated solids for lunch. She is moving her bowels since the CT contrast and feels that this may have brought her the relief. I have informed her that she has chemistries suggesting hyperparathyroidism and hypothyroidism and that she needs to see an collaborating supervising physician. - Objective Vital Signs: Vital Signs Temperature 98.7 F 06/18/18 14:50 Pulse Rate 85 06/18/18 14:50 Respiratory Rate 18 06/18/18 14:50 Blood Pressure 139/71 06/18/18 14:50 O2 Sat by Pulse Oximetry (%) 100 06/17/18 23:09 CBC,CMP WBC 9.2 K/mm3 (4.0-10.0) 06/18/18 06:20 RBC 4.98 M/mm3 (3.60-5.2) 06/18/18 06:20 Hgb 14.8 GM/dL (10.7-15.3) 06/18/18 06:20 Hct 44.9 % (32.4-45.2) 06/18/18 06:20 MCV 90.2 fl (80-96) 06/18/18 06:20 MCH 29.7 pg (25.7-33.7) 06/18/18 06:20 MCHC 32.9 g/dl (32.0-36.0) 06/18/18 06:20 RDW 14.3 % (11.6-15.6) 06/18/18 06:20 Plt Count 236 K/MM3 (134-434) 06/18/18 06:20 MPV 8.4 fl (7.5-11.1) 06/18/18 06:20 Absolute Neuts (auto) 6.6 K/mm3 (1.5-8.0) 06/18/18 06:20 Neutrophils % 71.9 % (42.8-82.8) D 06/18/18 06:20 Lymphocytes % 16.9 % (8-40) D 06/18/18 06:20 Monocytes % 6.3 % (3.8-10.2) 06/18/18 06:20 Eosinophils % 4.1 % (0-4.5) 06/18/18 06:20 Basophils % 0.8 % (0-2.0) 06/18/18 06:20 Nucleated RBC % 0 % (0-0) 06/18/18 06:20 Sodium 141 mmol/L (136-145) 06/18/18 06:20 Potassium 4.4 mmol/L (3.5-5.1) 06/18/18 06:20 Chloride 106 mmol/L (98-107) 06/18/18 06:20 Carbon Dioxide 28 mmol/L (21-32) 06/18/18 06:20 Anion Gap 8 MMOL/L (8-16) 06/18/18 06:20 BUN 8 mg/dL (7-18) 06/18/18 06:20 Creatinine 0.7 mg/dL (0.55-1.3) 06/18/18 06:20 Creat Clearance w eGFR > 60 (>60) 06/18/18 06:20 Random Glucose 86 mg/dL (74-106) 06/18/18 06:20 Calcium 9.8 mg/dL (8.5-10.1) 06/18/18 06:20 Phosphorus 3.6 mg/dL (2.5-4.9) 06/18/18 06:20 Magnesium 2.4 mg/dL (1.8-2.4) 06/18/18 06:20 Total Bilirubin 0.6 mg/dL (0.2-1) 06/18/18 06:20 AST 25 U/L (15-37) 06/18/18 06:20 ALT 31 U/L (13-61) 06/18/18 06:20 Alkaline Phosphatase 111 U/L (45-117) 06/18/18 06:20 LD Total 172 U/L (84-246) 06/18/18 06:20 Creatine Kinase 88 IU/L (26-192) 06/18/18 06:20 C-Reactive Protein < 0.3 MG/DL (0.00-0.3) 06/18/18 06:20 Total Protein 7.1 g/dl (6.4-8.2) 06/18/18 06:20 Albumin 3.9 g/dl (3.4-5.0) 06/18/18 06:20 Total Amylase 36 U/L (25-115) 06/18/18 06:20 TSH 12.50 uIU/ml (0.358-3.74) H 06/18/18 06:20 Constitutional: No Distress ...Auscultate: Yes: Normoactive Bowel Sounds ...Palpate: Yes: Soft, Other (nontender) Labs: CBC, BMP 06/18/18 06:20 06/18/18 06:20 Problem List - Problems (1) Pelvic pain in female Assessment/Plan: I now suspect that Giovana passed a hard jagged fecalith across her rectosigmoid angulation that created a mucosal tear but fortunately not a perforation. Given this I have advised her to take Miralax daily and will eprescribe it to her pharmacy. I advised followup to our office after her endocrine evaluation. I have discussed the case with Dr Montero and have no GI objections to discharge. Code(s): R10.2 - PELVIC AND PERINEAL PAIN (2) Perineal pain in female Code(s): N94.9 - UNSP COND ASSOC W FEMALE GENITAL ORGANS AND MENSTRUAL CYCLE (3) Constipation Code(s): K59.00 - CONSTIPATION, UNSPECIFIED (4) History of prolapse of bladder Code(s): Z87.448 - PERSONAL HISTORY OF OTHER DISEASES OF URINARY SYSTEM (5) COPD (chronic obstructive pulmonary disease) Code(s): J44.9 - CHRONIC OBSTRUCTIVE PULMONARY DISEASE, UNSPECIFIED (6) Colon polyp, hyperplastic Code(s): K63.5 - POLYP OF COLON (7) Diverticula of colon Code(s): K57.30 - DVRTCLOS OF LG INT W/O PERFORATION OR ABSCESS W/O BLEEDING (8) Nephrolithiasis Code(s): N20.0 - CALCULUS OF KIDNEY (9) Family history of colon cancer in mother Code(s): Z80.0 - FAMILY HISTORY OF MALIGNANT NEOPLASM OF DIGESTIVE ORGANS
--- NOTE | 2018-06-18 15:19 | DS ---
Physical Examination Vital Signs: Vital Signs Temperature 37.1 C 06/18/18 14:50 Pulse Rate 85 06/18/18 14:50 Respiratory Rate 18 06/18/18 14:50 Blood Pressure 139/71 06/18/18 14:50 O2 Sat by Pulse Oximetry (%) 100 06/17/18 23:09 Labs: CBC, BMP 06/18/18 06:20 06/18/18 06:20 Discharge Summary Reason For Visit: UTI Current Active Problems Bladder calculus (Acute) COPD (chronic obstructive pulmonary disease) (Acute) Colon polyp, hyperplastic (Acute) Constipation (Acute) Diverticula of colon (Acute) Family history of colon cancer in mother (Acute) History of prolapse of bladder (Acute) Hyperlipidemia (Acute) Nephrolithiasis (Acute) Pelvic pain (Acute) Pelvic pain in female (Acute) Perineal pain in female (Acute) UTI (urinary tract infection) (Acute) Vaginal pain (Acute) Hospital Course: Ms Garcia is a pleasant 57 year old female who presented with abdominal pain. She was admitted and underwent CT scan. After having bowel movements her pain improved. Suspect patient had significant constipation. Case d/w Dr Alba and he feels she is also safe for discharge. She will be discharged on keflex for 6 more days. She will need outpatient referral to endocrinology, further work up for hypothyroid and hyperparathyroid. Will defer to Dr Pal for this. Condition: Good - Instructions Diet, Activity, Other Instructions: low fat diet. resume previous activity. Referrals: Wendy Alba MD [Staff Physician] - Chintan Pal MD [Staff Physician] - 1 Week Steffen Biggs MD [Staff Physician] - Disposition: HOME - Home Medications Comprehensive Discharge Medication List: Ambulatory Orders Cephalexin Monohydrate [Keflex -] 500 mg PO BID #12 capsule 06/18/18 Polyethylene Glycol 3350 [Miralax (For Daily Use) -] 17 gm PO DAILY #1 bottle
--- NOTE | 2018-06-18 17:27 | CON.GU ---
Consult Consult Specialty:: Referred by:: medicine Reason for Consultation:: pelvic pain - History of Present Illness Chief Complaint: pelvic pain History of Present Illness: 57 year old female with a few days of severe pelvic pain and hypertension. She also reported being constipated for a while. She has a bladder stone on CT> after the gastrograffin she had several bowel movements and her pain has resolved. - History Source History Provided By: Patient Limitations to Obtaining History: No Limitations - Past Medical History Pulmonary: Yes: COPD Gastrointestinal: Yes: Diverticulosis, Other (colon polyps) Hepatobiliary: Yes: Cholelithiasis (s/p lap choly) Renal/: Yes: Renal Calculi (bladder polyp removed 2010), UTI (recurremt), Other (inconntinence) Psych: Yes: Anxiety - Past Surgical History Past Surgical History: Yes: Cholecystectomy (lap choly ) Additional Surgical History: bladder prolpase repair x 2 with removal of sling and mesh. 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 History of Recent Travel: No Home Medications - Allergies Allergies/Adverse Reactions: Allergies Allergy/AdvReac Type Severity Reaction Status Date / Time No Known Allergies Allergy Verified 06/17/18 17:15 - Home Medications Home Medications: Ambulatory Orders Cephalexin Monohydrate [Keflex -] 500 mg PO BID #12 capsule 06/18/18 Polyethylene Glycol 3350 [Miralax (For Bowel Prep) -] 17 gm PO DAILY #1 btl Polyethylene Glycol 3350 [Miralax (For Daily Use) -] 17 gm PO DAILY #1 bottle Family Disease History - Family Disease History Family Disease History: Diabetes: Brother, Heart Disease: Father ( of [place]), CA: Mother (colon cancer), Other: Sister (thyroid disease) Review of Systems - Review of Systems Constitutional: reports: No Symptoms Genitourinary: reports: Flank Pain, Pain, Urgency Physical Exam- Vital Signs: Vital Signs Temperature 98.7 F 06/18/18 14:50 Pulse Rate 85 06/18/18 14:50 Respiratory Rate 18 /28/18 14:50 Blood Pressure 139/71 06/18/18 14:50 O2 Sat by Pulse Oximetry (%) 100 06/17/18 23:09 Renal/: No: CVA Tenderness - Left, CVA Tenderness - Right, Huang Present, Hematuria, Incontinence Kidneys: No: Flank Pain Left, FLank Pain Right Pelvis: Yes: Bladder Non Palpable Labs: CBC, BMP 06/18/18 06:20 06/18/18 06:20 Problem List - Problems (1) Bladder calculus Assessment/Plan: follow up as outpatient for management Code(s): N21.0 - CALCULUS IN BLADDER
[2018-06-18 17:31] VITALS: BP 142/65; PULSE 76; TEMP 98
[2018-06-18] MEDS ORDERED: CEFTRIAXONE 1 GM in DEXTROSE 5%-WATER - 50 ML IVPB SCH (22:00)
== END 2018-06-18 18:50 | disposition home or self-care (01) | DRG 690 ==
LOC: JER 17:13 → JERBED 23:02 → J8W 23:48
PROVIDERS: ADMIT Internal Medicine; ATTEND Internal Medicine
DX: N39.0 Urinary tract infection, site not specified (principal); B96.29 Other Escherichia coli [E. coli] as the cause of diseases classified elsewhere; N21.0 Calculus in bladder; D25.9 Leiomyoma of uterus, unspecified; E78.5 Hyperlipidemia, unspecified; R91.1 Solitary pulmonary nodule; F17.210 Nicotine dependence, cigarettes, uncomplicated; J44.9 Chronic obstructive pulmonary disease, unspecified; K57.30 Diverticulosis of large intestine without perforation or abscess without bleeding; Z80.0 Family history of malignant neoplasm of digestive organs; K59.00 Constipation, unspecified
CPT/HCPCS: 36415; 74176-TC; 74177-TC; 80053; 81003; 81015; 82150; 82310; 82550; 83615; 83735; 83970; 84100; 84155; 84165; 84436; 84443; 85025; 86140; 87086; 93005; 93010; 99284-25; J1644; J7030

== ENCOUNTER 2019-03-09 06:50 | Day surgery (SDC) | payer OTHER ==
[2019-03-08 12:48] VITALS: BMI 22.4
[2019-03-09 08:53] VITALS: TEMP 97.8
[2019-03-09 13:14] VITALS: BP 130/66; PULSE 65
--- NOTE | 2019-03-10 11:40 | PATH ---
Surgical Pathology Report Patient Name: LOLY PATEL [facility]. Rec. #: [id number] /Age/Gender: 1960 (Age: 58) / F Account: [id number] Location: U-ENDOSCOPY Taken: 03/09/2019 Received: 03/09/2019 Reported: 03/10/2019 Physicians: Wendy Alba M.D. Specimen(s) Received A: SECOND PORTION DUODENUM AND BULB B: ANTRUM C: GASTRIC FUNDUS POLYP D: GE JUNCTION E: RECTAL POLYP F: DESCENDING COLON POLYP G: TRANSVERSE COLON POLYP H: CECAL POLYP Clinical History Abdominal pain, rule out ulcer, history of colon polyps, family history of colon cancer, colon cancer screening Postoperative diagnosis: GERD, gastritis, gastric polyp, colon polyps Final Diagnosis A. DUODENUM, SECOND PORTION AND DUODENAL BULB, BIOPSY: DUODENAL MUCOSA WITH MILD ACUTE AND CHRONIC DUODENITIS. B. STOMACH, ANTRUM, BIOPSY: GASTRIC ANTRAL MUCOSA WITH MILD CHRONIC GASTRITIS. IMMUNOHISTOCHEMICAL STAIN FOR H. PYLORI IS NEGATIVE. C. GASTRIC FUNDUS, POLYP, BIOPSY: POLYPOID GASTRIC MUCOSA WITH MODERATE CHRONIC GASTRITIS. IMMUNOHISTOCHEMICAL STAIN FOR H. PYLORI IS NEGATIVE. D. GE JUNCTION, BIOPSY: SQUAMOCOLUMNAR MUCOSA WITH MILD CHRONIC INFLAMMATION AND CHANGES OF MODERATE REFLUX ESOPHAGITIS. NO INTESTINAL METAPLASIA OR DYSPLASIA IDENTIFIED. E. RECTAL POLYP, BIOPSY: HYPERPLASTIC POLYP. F. DESCENDING COLON, POLYP, BIOPSY: POLYPOID COLONIC MUCOSA WITH MILD SUPERFICIAL HYPERPLASTIC FEATURES. G. TRANSVERSE COLON, POLYP, BIOPSY: POLYPOID COLONIC MUCOSA WITH PROMINENT LYMPHOID AGGREGATE. H. CECAL POLYP, BIOPSY: TUBULAR ADENOMA. Electronically Signed Pretty Jackman M.D. Gross Description A. Received in formalin, labeled "biopsy second portion duodenum and duodenal bulb" are 4 porter, irregular portions of soft tissue ranging from 0.3-0.4 cm. in greatest dimension. The specimens are submitted in toto in one cassette. B. Received in formalin, labeled "biopsy antrum" are 3 porter, irregular portions of soft tissue ranging from 0.3-0.4 cm. in greatest dimension. The specimens are submitted in toto in one cassette. C. Received in formalin, labeled "biopsy gastric fundus polyp" are 2 porter, irregular portions of soft tissue measuring 0.2 and 0.3 cm. in greatest dimension. The specimens are submitted in toto in one cassette. D. Received in formalin, labeled "biopsy GE junction" are 2 porter, irregular portions of soft tissue averaging 0.4 cm. in greatest dimension. The specimens are submitted in toto in one cassette. E. Received in formalin, labeled "biopsy rectal polyp" are 4 porter, irregular portions of soft tissue ranging from 0.1-0.2 cm. in greatest dimension. The specimens are submitted in toto in one cassette. F. Received in formalin, labeled "biopsy descending colon polyp" are 2 porter, irregular portions of soft tissue measuring 0.2 and 0.3 cm. in greatest dimension. The specimens are submitted in toto in one cassette. G. Received in formalin, labeled "biopsy transverse colon polyp" are 2 porter, irregular portions of soft tissue averaging 0.3 cm. in greatest dimension. The specimens are submitted in toto in one cassette. H. Received in formalin, labeled "biopsy cecal polyp" is a porter, irregular portion of soft tissue measuring 0.4 cm. in greatest dimension. The specimen is submitted in toto in one cassette. 03/09/2019 [facility]03/09/2019
== END 2019-03-09 10:05 | disposition home or self-care (01) ==
LOC: JASU-ENDO 06:50
PROVIDERS: ATTEND Internal Medicine Gastroenterology
PROC: 0DBL8ZX Excision of Transverse Colon, Via Natural or Artificial Opening Endoscopic, Diagnostic (ICD-10-PCS; 2019-03-09)
PROC: 0DBN8ZX Excision of Sigmoid Colon, Via Natural or Artificial Opening Endoscopic, Diagnostic (ICD-10-PCS; 2019-03-09)
PROC: 0DBP8ZX Excision of Rectum, Via Natural or Artificial Opening Endoscopic, Diagnostic (ICD-10-PCS; 2019-03-09)
PROC: 0DB48ZX Excision of Esophagogastric Junction, Via Natural or Artificial Opening Endoscopic, Diagnostic (ICD-10-PCS; 2019-03-09)
PROC: 0DB68ZX Excision of Stomach, Via Natural or Artificial Opening Endoscopic, Diagnostic (ICD-10-PCS; 2019-03-09)
PROC: 0DBH8ZX Excision of Cecum, Via Natural or Artificial Opening Endoscopic, Diagnostic (ICD-10-PCS; principal; 2019-03-09 08:00)
DX: Z12.11 Encounter for screening for malignant neoplasm of colon (principal); K62.1 Rectal polyp; D12.0 Benign neoplasm of cecum; D12.5 Benign neoplasm of sigmoid colon; D12.3 Benign neoplasm of transverse colon; K64.8 Other hemorrhoids; K57.30 Diverticulosis of large intestine without perforation or abscess without bleeding; K31.7 Polyp of stomach and duodenum; K21.0 Gastro-esophageal reflux disease with esophagitis; K44.9 Diaphragmatic hernia without obstruction or gangrene; K29.70 Gastritis, unspecified, without bleeding; J44.9 Chronic obstructive pulmonary disease, unspecified; Z72.0 Tobacco use; Z80.0 Family history of malignant neoplasm of digestive organs; Z86.010 Personal history of colon polyps
CPT/HCPCS: 88305-TC; 88342-TC

== ENCOUNTER 2022-08-02 09:32 | Emergency (ER) | payer OTHER ==
[2022-08-02] MEDS ORDERED: ACETAMINOPHEN 500 MG TABLET (FP) PO ONE (12:33)
[2022-08-02 12:39] VITALS: BP 197/78; PULSE 98; RESP 18; TEMP 98.2; BMI 21.9
[2022-08-02] MEDS ORDERED: ACETAMINOPHEN 500 MG TABLET (FP) ONE (14:22)
== END 2022-08-02 14:34 | disposition home or self-care (01) ==
LOC: JER 09:32
DX: M79.604 Pain in right leg (principal)
CPT/HCPCS: 93971-TC; 99284-25

== ENCOUNTER 2022-08-09 09:06 | Emergency (ER) | payer OTHER ==
[2022-08-09 09:30] VITALS: RESP 18; TEMP 98.1; BMI 21.9
[2022-08-09 10:27] LABS: HEMATOCRIT 34.7 % (32.4-45.2); HEMOGLOBIN 11.9 G/dL (10.7-15.3); MCH 32.2 pg (25.7-33.7); MCHC 34.1 g/dl (32.0-36.0); MEAN CELL VOLUME 94.2 fl (80-96); PLATELET COUNT 117.1 10^3/uL (134-434); RBC 3.68 10^6/uL (3.60-5.2); RDW 18.7 % (11.6-15.6)
[2022-08-09 10:28] LABS: INR 1.01 (0.83-1.09); PROTHROMBIN TIME (PATIENT) 11.6 SEC (9.7-13.0)
[2022-08-09 10:35] LABS: PLATELET ESTIMATE SLT DECREASE
[2022-08-09 10:50] LABS: ALBUMIN 4.5 g/dl (3.4-5.0); BILIRUBIN,TOTAL 0.4 mg/dl (0.2-1); CALCIUM 9.6 mg/dl (8.5-10); CREATININE 0.8 mg/dl (0.55-1.3); TOT PROT 7.2 g/dl (6.4-8.2)
[2022-08-09 12:11] VITALS: BP 153/88; PULSE 79
== END 2022-08-09 12:15 | disposition home or self-care (01) ==
LOC: FER 09:06
DX: T45.1X5A Adverse effect of antineoplastic and immunosuppressive drugs, initial encounter (principal)
CPT/HCPCS: 36415; 80053; 85025; 85610; 85730; 93970-TC; 99284-25

== ENCOUNTER 2024-04-13 14:14 | Emergency (ER) | payer OTHER ==
[2024-04-13 14:29] VITALS: BP 148/94; PULSE 101; RESP 20; TEMP 99.1; BMI 26.5
== END 2024-04-13 15:58 | disposition home or self-care (01) ==
LOC: FER 14:14
DX: J98.8 Other specified respiratory disorders (principal); R05.9 Cough, unspecified; R09.81 Nasal congestion; Z20.822 Contact with and (suspected) exposure to COVID-19
CPT/HCPCS: 0241U-QW; 71046-TC-FY; 99284-25

== ENCOUNTER 2024-07-13 04:41 | Day surgery (SDC) | payer OTHER ==
[2024-07-07 15:47] VITALS: BMI 26.0
[2024-07-13 07:59] VITALS: RESP 18
[2024-07-13 09:14] VITALS: TEMP 98
[2024-07-13 10:11] VITALS: BP 137/75; PULSE 67
== END 2024-07-13 10:11 | disposition home or self-care (01) ==
LOC: JASU-ENDO 04:41
PROVIDERS: ATTEND Internal Medicine Gastroenterology
PROC: 0DBL8ZX Excision of Transverse Colon, Via Natural or Artificial Opening Endoscopic, Diagnostic (ICD-10-PCS; 2024-07-13)
PROC: 0DBN8ZX Excision of Sigmoid Colon, Via Natural or Artificial Opening Endoscopic, Diagnostic (ICD-10-PCS; 2024-07-13)
PROC: 0DB98ZX Excision of Duodenum, Via Natural or Artificial Opening Endoscopic, Diagnostic (ICD-10-PCS; 2024-07-13)
PROC: 0DB78ZX Excision of Stomach, Pylorus, Via Natural or Artificial Opening Endoscopic, Diagnostic (ICD-10-PCS; 2024-07-13)
PROC: 0DB68ZX Excision of Stomach, Via Natural or Artificial Opening Endoscopic, Diagnostic (ICD-10-PCS; 2024-07-13)
PROC: 0DB28ZX Excision of Middle Esophagus, Via Natural or Artificial Opening Endoscopic, Diagnostic (ICD-10-PCS; 2024-07-13)
PROC: 0DB38ZX Excision of Lower Esophagus, Via Natural or Artificial Opening Endoscopic, Diagnostic (ICD-10-PCS; 2024-07-13)
PROC: 0DBK8ZX Excision of Ascending Colon, Via Natural or Artificial Opening Endoscopic, Diagnostic (ICD-10-PCS; principal; 2024-07-13 09:00)
DX: Z12.11 Encounter for screening for malignant neoplasm of colon (principal); D12.3 Benign neoplasm of transverse colon; K63.5 Polyp of colon; K57.30 Diverticulosis of large intestine without perforation or abscess without bleeding; K21.00 Gastro-esophageal reflux disease with esophagitis, without bleeding; K29.50 Unspecified chronic gastritis without bleeding; K29.40 Chronic atrophic gastritis without bleeding; K31.7 Polyp of stomach and duodenum; Z86.0100 Personal history of colon polyps, unspecified; Z80.0 Family history of malignant neoplasm of digestive organs; Z83.719 Family history of colon polyps, unspecified
CPT/HCPCS: 88305-TC; 88342-TC

== ENCOUNTER → 2025-05-24 | Day surgery (SDC) | payer OTHER | END | disposition home or self-care (01) | LOC: JRADUS-SUR 07:49 | PROVIDERS: ATTEND Obstetrics & Gynecology | PROC: 07963ZX Drainage of Left Axillary Lymphatic, Percutaneous Approach, Diagnostic (ICD-10-PCS; principal; 2025-05-24) | DX: R59.0 Localized enlarged lymph nodes (principal) | CPT/HCPCS: 10005; 76942; 87899; 88108; 88305-TC; 88341-TC; 88342-TC; A4648 ==